=== PATIENT | male | born 1985 | race Caucasian/White ===

== ENCOUNTER 2024-11-20 15:33 | Emergency (ER) | payer OTHER, SELFPAY ==
--- NOTE | ~2024-11-20 | XR_ITS ---
CHEST RADIOGRAPH, PA AND LATERAL CLINICAL HISTORY: chest pain RT SIDED H/A'S PALPITATIONS TODAY . COMPARISON: None available TECHNIQUE: PA and lateral views of the chest. FINDINGS The cardiomediastinal silhouette is unremarkable. The lungs are clear. Visualized osseous structures and soft tissues are unremarkable. IMPRESSION: No focal infiltrate or effusion. Reviewed, dictated and finalized at location A.
--- NOTE | ~2024-11-20 | CT_ITS ---
CT brain wo con Ordering provider: Nasra Nielsen PA-C History: 39 years Male with . headache, elevated BP . Comparison: None. Technique: CT of the head without contrast. Radiation reduction technique utilized. The dose-length p roduct was 681 mGy-cm. FINDINGS: BRAIN PARENCHYMA AND CSF SPACES: No midline shift, mass effect or hemorrhage. The brain parenchyma a nd CSF spaces are otherwise normal. VISUALIZED PARANASAL SINUSES: Maxillary sinus disease bilateral ethmoid sinus disease. Well aerated. MASTOIDS: Well aerated. BONES: The bones appear intact. SOFT TISSUES: Visualized nasopharynx is normal. Superficial soft tissues are normal. IMPRESSION: No acute intracranial findings. Reviewed, dictated and finalized at location A.
--- NOTE | 2024-11-20 15:35 | ECG_ITS ---
Test Date: 2024-11-20 15:39:56 Measurements Intervals [place] Rate: 91 P: 43 MO: 144 QRS: 36 QRSD: 75 T: 18 QT: 346 QTc: 427 Interpretive Statements SINUS RHYTHM POSSIBLE LEFT ATRIAL ENLARGEMENT ANTEROSEPTAL INFARCT, AGE INDETERMINATE ABNORMAL ECG No previous ECG available for comparison Electronically Signed On 11-20-2024 15:56:35 CDT by George Rogel D.O.
[2024-11-20 15:43] VITALS: BP 217/127; PULSE 98; RESP 16; TEMP 36.4; O2SAT 99
[2024-11-20 15:51] LABS: Hematocrit 44.2 % (42.0-52.0); Hemoglobin 14.1 g/dL (14.0-18.0); Mean Corpuscular HGB Conc 31.9 g/dl (32-36); Mean Corpuscular Volume 84.7 fl (80-100); Mean Platelet Volume 12.6 fl (7.4-10.4); Platelet Count Result 235 k/mm3 (150-375); Red Blood Count 5.22 M/mm3 (4.6-6.20); Red Cell Distribution Width 14.3 % (11.5-14.5); White Blood Count 11.3 K/mm3 (4.5-10.0)
[2024-11-20 16:03] LABS: Alanine Aminotransferase 22 U/L (6-50); Albumin Level 4.7 g/dL (3.5-5.1); Alkaline Phosphatase 63 U/L (38-126); Anion Gap 9 mmol/L (4-12); Aspartate Amino Transferase 23 U/L (17-59); Bilirubin,Total 0.5 mg/dL (0.2-1.3); Blood Urea Nitrogen 17 mg/dL (9-20); Calcium 9.1 mg/dL (8.4-10.2); Carbon Dioxide 26 mmol/L (22-30); Chloride 105 mmol/L (98-107); Estimated CRCL calculation 134 ml/min; Estimated Glomerular Filt Rate > 60; Glucose 155 mg/dL (65-110); Lipase 92 U/L (23-300); Potassium 3.8 mmol/L (3.4-5.0); Sodium 140 mmol/L (137-145)
[2024-11-20 16:05] LABS: Prothrombin Time 13.7 Seconds (11.1-14.7)
[2024-11-20 16:06] LABS: Partial Thromboplastin Time 30.5 Seconds (22.3-36.8)
[2024-11-20 16:16] LABS: Troponin I 0.013 ng/mL (0.000-0.034)
[2024-11-20 16:24] LABS: Band Neutrophils Percent 2 % (0-6); Basophils Absolute Manual 0.11 K/mm3 (0.0-0.1); Basophils Percent Manual 1 % (0-1); Eosinophils Absolute Manual 0.11 K/mm3 (0.02-0.50); Eosinophils Percent Manual 1 % (0-4); Lymphocytes Absolute Manual 1.58 K/mm3 (1.1-4.5); Lymphocytes Percent Manual 14 % (18-44); Monocytes Percent Manual 8 % (3-9); Neutrophils Absolute Manual 8.58 K/mm3 (1.3-6.7); Neutrophils Percent Manual 74 % (46-73); Total Cells Counted 100
[2024-11-20 16:25] LABS: Anisocytosis 1+; Ovalocytes 1+; Platelet Estimate Adequate (Adequate); Schistocytes None Seen
[2024-11-20 16:27] VITALS: BP 213/130; PULSE 89; RESP 16; TEMP 36.8; O2SAT 97
[2024-11-20] MEDS: ASPIRIN 81 MG CHEWABLE TABLET 324 MG PO (16:48)
--- OUTSIDE RECORDS SUMMARY | 2024-11-20 16:50 | XMS_ITS | Clinical Summary ---
Author Organization [facility] Address [address] [place] [address] Care Team Providers Care Solar Energy Consultant And Designer Name Role Phone Wicho Fang MD Primary Care Provider [phone] Source Comments [facility],non-owned Affiliates and Associated Physician Practices is amultiple site organization consisting of ambulatory clinics and hospital sitesin [place], [place], [place] and [place]. This disclosure is being madepursuant to the Care Everywhere program and may not contain all information available regarding this patient. Last updated 18.[facility] Allergies No known active allergies Medications * Be aware that medications may not be up to date on this document. Alwaysverify current medications with the patient. Medication Sig Dispensed Refills Start Date End Date Status ALPRAZolam (Xanax) 1 MG tablet Take 1 (one) tablet by mouth every 4 hours as needed 06/10/2022 Active amLODIPine (Norvasc) 10 MG tablet Take 1 (one) tablet by mouth once daily 07/21/2022 Active irbesartan (Avapro) 300 MG tablet Take 1 (one) tablet by mouth once daily 07/21/2022 Active traZODone (Desyrel) 50 MG tablet Take 1 (one) tablet by mouth at bedtime 07/21/2022 Active aspirin EC (Ecotrin) 81 MG tablet Take 1 (one) tablet by mouth 2 times daily Active albuterol HFA (Proventil; Ventolin; Proair) 108 (90 Base) MCG/ACT inhaler Inhale 1 (one) puff to 2 (two) puffs by mouth once daily as needed 08/15/2022 Active diphenhydrAMINE HCl (BENADRYL ALLERGY PO) Take 50 mg by mouth as needed Active amLODIPine (Norvasc) 10 MG tablet Take 1 (one) tablet by mouth every 24 hours 10/26/2022 Active tretinoin (Retin-A) 0.025 % cream Apply small amount to upper lip daily. 30 days supply. 45 g 02/17/2023 Active emtricitabine-tenofov ir DF (Truvada) 200-300 MG tablet Take 1 (one) tablet by mouth once daily 90 tablet 4 07/25/2023 Active Active Problems Problem Noted Date Diagnosed Date Generalized anxiety disorder 03/20/2015 Hypercholesterolemia 03/20/2015 01/24/2023 Abnormal glucose level 03/20/2015 3 Immunizations Name Administration Dates Next Due HEP A VACCINE, ADULT 10/25/2022 Human Papilloma Virus Ninevalent Vaccine 023 INFLUENZA VACCINE 06/03/2022 TDAP (7yrs+) 06/14/2020 Family History Medical History Relation Name Comments Hypertension Father Renal Disease Father Other - Cardiac Maternal Grandmother Cancer Mother Thyroid Disease Mother Cancer Paternal Grandfather Glaucoma Paternal Grandmother Hypertension Paternal Grandmother Relation Name Status Comments Brother Alive Father Maternal Grandfather Maternal Grandmother Mother Alive Paternal Grandfather Paternal Grandmother Alive Sister Alive Social History Tobacco Use Types Packs/Day Years Used Date Smoking Tobacco: Never Assessed PHQ-2 Answer Date Recorded PHQ2 TOTAL SCORE 2 01/24/2023 Sex and Gender Information Value Date Recorded Sex Assigned at Male 01/24/2023 12:17 PM CDT Gender Identity Male 01/24/2023 12:17 PM CDT Sexual Orientation Bisexual 01/24/2023 12 :17 PM CDT Last Filed Vital Signs Vital Sign Reading Time Taken Comments Blood Pressure 142/88 01/24/2023 1:32 PM CDT Pulse 67 01/24/2023 1:09 PM CDT Temperature 36 C (96.8 F) 01/24/2023 1:09 PM CDT Respiratory Rate - - Oxygen Saturation 97% 01/24/2023 1:09 PM CDT Inhaled Oxygen Concentration - - Weight 133.1 kg (293 lb 6.4 oz) 01/24/2023 1:09 PM CDT Height 188 cm (6' 2 ) 01/24/2023 1:09 PM CDT Body Mass Index 37.67 01/24/2023 1:09 PM CDT Plan of Treatment Health Maintenance Due Date Last Done Comments HEPATITIS B VACCINE (1 of 3 - 19+ 3-dose series) 2006 HPV VACCINE (2 - 3-dose SCDM series) 02/21/2023 01/24/2023 HEPATITIS A VACCINE (2 of 2 - Risk 2-dose series) 04/27/2023 10/25/2022 COVID-19 VACCINE ( season) 2024 05/27/2022, 10/20/2021, 02/17/2021, Additional history exists INFLUENZA VACCINE (#1) 2024 06/03/2022 DEPRESSION SCREENING 08/14/2024 01/24/2023, 07/26/20 22 DTAP/TDAP/TD VACCINES (2 - Td or Tdap) 06/14/2030 06/14/2020 ZOSTER VACCINE (1 of 2) 2037 HEPATITIS C SCREENING Completed 10/25/2022, 022 HIV SCREENING Completed 01/24/2023, 01/12, 01/24/2023, Additional history exists HIB VACCINE Aged Out No longer eligi ble based on patient's age to complete this topic MENINGOCOCCAL (Group B) VACCINE SHARED DECISION-MAKING Aged Out No longer eligible based on patient's age to complete this topic MENINGOCOCCAL GROUPS A/C/Y/W VACCINE Aged Out No longer eligible based on patient's age to complete this topic PNEUMOCOCCAL VACCINE Aged Out No long er eligible based on patient's age to complete this topic Procedures Procedure Name Priority Date/Time Associated Diagnosis Comments HIV-1 HIV-2 - POCT (AMB) STL Routine 01/24/2023 1:10 PM CDT Exposure to HIV On pre-exposure prophylaxis for HIV HEPATITIS C AB W/RFLX TO HCV RNA QN PCR Routine 10/25/2022 1:48 PM CDT Exposure to HIV Routine screening for STI (sexually transmitted infection) from Last 3 Months or Most Recently Relevant to Health Maintenance Results * HIV-1 HIV-2 - POCT (AMB) STL (01/24/2023 1:10 PM CDT) HIV-1/HIV-2 POCT Negative Comment:Determin HIV combo A B Ag Blood BLOOD SPECIMEN / Unknown 01/24/2023 1:10 PM CDT Whitley Maguire David BASIN FINISH OPERATOR TIG WELDER-FERTILIZER APPLICATOR LAB - POINT OF CARE ORDERABLES * Hep C Antibody with reflex ([facility]) (10/25/2022 1:48 PM CDT) Hepatitis C Antibody NON-REACTI VE NON-REACT [facility] Signal to Cut-Off 0.12 <1.00 [facility] Comment: HCV antibody was non-reactive. There is no laboratory evidence of HCV infection. In most cases, no further action is required. However, if recent HCV exposure is suspected, a test for HCV RNA (test code 20354) is suggested. For additional information please refer to http://education.Meme/faq/THZ24w1 (This link is being provided for informational/ educational purposes only.) Test Performed at: [facility] [address] [place] [address] KATHY WILCOX MD Blood BLOOD SPECIMEN / Unknown 10/25/2022 1:48 PM CDT 10/26/2022 2:15 PM CDT Whitley Maguire David BASIN FINISH OPERATOR TIG WELDER-FERTILIZER APPLICATOR LAB - CHEMISTRY ORDERABLES [facility] [address] [place] [address] from Last 3 Months or Most Recently Relevant to Health Maintenance Care Teams Solar Energy Consultant And Designer Relationship Specialty Start Date End Date Wicho Fang MD [address] [place] [phone] PCP - General 06/29/22
--- OUTSIDE RECORDS SUMMARY | 2024-11-20 16:50 | XMS_ITS | Encounter Summary ---
Author Organization [facility] Address [facility] [place] [address] Care Team Providers Care Scraper Hand Name Role Phone Wicho Fang MD Primary Care Provider [phone] Reason for Visit * Reason Comments Refill Request Encounter Details Date Type Department Care Team (Late st Contact Info) Description 01/18/2023 Refill [facility] - Infectious Disease [address] [place] [address], [facility] [place] [phone] Whitley Hernandez, DIP PAINTER-WRAPPING CLERK [address] [place] [phone] Refill Request Social History Tobacco Use Types Packs/Day Years Used Date Smoking Tobacco: Never Assessed PHQ-2 Answer Date Recorded PHQ2 TOTAL SCORE 0 07/26/2022 Sex and Gender Information Value Date Recorded Sex Assigned at Male 01/24/2023 12:17 PM CDT Gender Identity Male 01/24/2023 12:17 PM CDT Sexual Orientation Bisexual 01/24/2023 12 :17 PM CDT documented as of this encounter Plan of Treatment Not on file documented as of this encounter Visit Diagnoses Diagnosis Exposure to HIV Contact with or exposure to other viral diseases documented in this encounter Care Teams Scraper Hand Relationship Specialty Start Date End Date Wicho Fang MD [address] [place] [phone] PCP - General 06/29/22 documented as of this encounter
--- OUTSIDE RECORDS SUMMARY | 2024-11-20 16:50 | XMS_ITS | Continuity of Care Document ---
Author Organization [facility] Address [address] [place] [address] Phone Care Team Providers Care Button Grader Name Role Phone Wicho Fang MD Unavailable Unavailable Allergies, Adverse Reactions, Alerts Substance Reaction Status Criticality No Known Allergies Active No Inform ation Medications Medication Instructions Dosage Effective Dates (start - stop) Status Comments Xanax 1 mg tablet take 1 tablet by oral route every 6 hours as needed 1 MG - Active PRN for anxiety, avoid driving or operate machines, max 3/24 hours Norvasc 10 mg tablet take 1 tablet by oral route every day 10 MG - Active irbesartan 300 mg tablet take 1 tablet by oral route every day 300 MG - Active Lexapro 10 mg tablet take 1 tablet by oral route every day 10 MG - Active trazodone 50 mg tablet take 1 tablet by oral route every bedtime after meals 50 MG - Active avoid drivin g or operate machines Lamictal 100 mg tablet take 1 tablet by oral route every day 100 MG - Active Procedures Procedure Date OFFICE/OUTPATIENT VISIT, EST OFFICE/OUTPATIENT VISIT, EST OFFICE/OUTPATIENT VISIT, EST OFFICE/OUTPATIENT VISIT, EST OFFICE/OUTPATIENT VISIT, EST PREV VISIT, EST, AGE 18-39 OFFICE/OUTPATIENT VISIT, EST OFFICE/OUTPATIENT VISIT, EST OFFICE/OUTPATIENT VISIT, EST OFFICE/OUTPATIENT VISIT, EST PREV VISIT, EST, AGE 18-39 OFFICE/OUTPATIENT VISIT, EST OFFICE/OUTPATIENT VISIT, EST OFFICE/OUTPATIENT VISIT, EST OFFICE/OUTPATIENT VISIT, EST OFFICE/OUTPATIENT VISIT, EST PREV VISIT, EST, AGE 18-39 OFFICE/OUTPATIENT VISIT, EST OFFICE/OUTPATIENT VISIT, EST OFFICE/OUTPATIENT VISIT, EST PREV VISIT, EST, AGE 18-39 OFFICE/OUTPATIENT VISIT, EST OFFICE/OUTPATIENT VISIT, EST OFFICE/OUTPATIENT VISIT, EST OFFICE/OUTPATIENT VISIT, EST PREV VISIT, EST, AGE 18-39 OFFICE/OUTPATIENT VISIT, EST OFFICE/OUTPATIENT VISIT, EST OFFICE/OUTPATIENT VISIT, EST PREV VISIT, EST, AGE 18-39 PREV VISIT, EST, AGE 18-39 OFFICE/OUTPATIENT VISIT, EST OFFICE/OUTPATIENT VISIT, EST OFFICE/OUTPATIENT VISIT, EST OFFICE/OUTPATIENT VISIT, EST OFFICE/OUTPATIENT VISIT, EST OFFICE/OUTPATIENT VISIT, EST PREV VISIT, NEW, AGE 18-39 Advance Directives Directive Yes / No Effective Date File Name No Information Encounters Encounter Description Practice Location Reason(s) For Visit Diagnoses Date Provider Providers Copied on Encounter [facility], [place], [address] [place], [place], [address], tel:[phone] [facility] Medicine No Information 5 Leoncio Sands. [address], [place], [place], [address] , [place]. tel:[phone] OFFICE/OUTPA TIENT VISIT, EST [facility], [place], [address] [place], [place], [address], tel:[phone] [facility] [place] HTN (chief complaint)a nxiety1 (chief complaint)s ick1 (chief complaint)i nsomnia1 (chief complaint) Essential (primary) hypertensionGenera lized anxiety disorderObstructiv e sleep apnea hypopneaViral infection 5 Leoncio Somers [address], [place], [place], [address] , [place]. tel:[phone] OFFICE/OUTPA TIENT VISIT, [facility], [address], [place], [place], [address], [place] tel:[phone] [facility] [place] anxiety1 (chief complaint)H TN (chief complaint) Essential (primary) hypertensionGenera lized anxiety disorder 4 Leoncio Sands. [address], [place], [place], [address] , [place]. tel:[phone] OFFICE/OUTPA TIENT VISIT, [facility], [address], [place], [place], [address], [place] tel:[phone] [facility] [place] GI (chief complaint) Gastroenteritis 4 Leoncio Sands. [address], [place], [place], [address] , [place]. tel:[phone] OFFICE/OUTPA TIENT VISIT, [facility], [address], [place], [place], [address], [place] tel:[phone] [facility] [place] diarrhea1 (chief complaint)H TN (chief complaint)a nxiety1 (chief complaint) Irritable bowel syndrome with diarrheaGeneralize d anxiety disorderEssential (primary) hypertension 4 Leoncio Sands. [address], [place], [place], [address] , [place]. tel:[phone] OFFICE/OUTPA TIENT VISIT, [facility], [address], [place], [place], [address], [place] tel:[phone] [facility] [place] HLP (chief complaint)a nxiety1 (chief complaint)i nsomnia1 (chief complaint)w eight gain1 (chief complaint) Generalized anxiety disorderMixed hyperlipidemiaPrim ady insomniaAbnormal weight gain 4 Leoncio Somers [address], [place], [place], [address] , [place]. tel:[phone] Referring Provider: Aria [address], [place], [place], [address]. tel:[phone] PREV VISIT, EST, AGE 18-39 [facility], [place], [address], [place], [place], [address], [place] tel:[phone] [facility] [place] physical (chief complaint) Encounter for general adult medical exam w abnormal findingsGeneralize d anxiety disorderEssential (primary) hypertensionObstru ctive sleep apnea hypopnea 3 Leoncio Somers [address], [place], [place], [address] , [place]. tel:[phone] Referring Provider: Aria [address], [place], [place], [address]. tel:[phone] OFFICE/OUTPA TIENT VISIT, EST [facility], [place], [address], [place], [place], [address], [place] tel:[phone] [facility] [place] anxiety1 (chief complaint)d iarrhea1 (chief complaint) Generalized anxiety disorderDiarrhea 3 Leoncio Somers [address], [place], [place], [address] , [place]. tel:[phone] Referring Provider: Aria [address], [place], [place], [address]. tel:[phone] OFFICE/OUTPA TIENT VISIT, EST [facility], [place], [address], [place], [place], [address], [place] tel:[phone] [facility] [place] HTN (chief complaint)a nxiety1 (chief complaint) Generalized anxiety disorderEmotional labilityEssential (primary) hypertension 3 Leoncio Somers [address], [place], [place], [address] , [place]. tel:[phone] Referring Provider: Wicho Fagn, [address], [place], [place], [address]. tel:[phone] OFFICE/OUTPA TIENT VISIT, EST [facility], [place], [address], [place], [place], [address], [place] tel:[phone] [facility] Medicine HTN (chief complaint)a nxiety1 (chief complaint) Essential (primary) hypertensionGenera lized anxiety disorder 3 Leoncio Sands. [address], [place], [place], [address] , [place]. tel:[phone] Referring Provider: Wicho Fang [address] [facility] [address], [place], [place], [address]. tel:[phone] PREV VISIT, EST, AGE 18-39 [facility], [place], [address], [place], [address], [place] tel:[phone] [facility] [place] physical (chief complaint) Encounter for general adult medical exam w abnormal findingsEssential (primary) hypertensionPrimar y insomniaPrimary central sleep apneaGeneralized anxiety disorderAbnormal weight gain 3 Leoncio Sands. [address], [place], [place], [address] , [place]. tel:[phone] Referring Provider: Aria [address], [place], [place], [address]. tel:[phone] OFFICE/OUTPA TIENT VISIT, EST [facility], [place], [address], [place], [place], [address], [place] tel:[phone] [facility] [place] anxiet1 (chief complaint)s ick (chief complaint)H TN (chief complaint) Generalized anxiety disorderEssential (primary) hypertensionAcute bronchitisHigh risk bisexual behavior 3 Leoncio Sands. [address], [place], [place], [address] , [place]. tel:[phone] Referring Provider: Wicho Fang [address], [place], [place], [address]. tel:[phone] OFFICE/OUTPA TIENT VISIT, [facility], [address], [place], [place], [address], [place] tel:[phone] [facility] [place] HTN (chief complaint)a nxiety1 (chief complaint)S TD (chief complaint)s leep apnea1 (chief complaint) Essential (primary) hypertensionPrimar y insomniaGeneralize d anxiety disorderPrimary central sleep apneaEncounter for STD screening 2 Leoncio Sands. [address], [place], [place], [address] , [place]. tel:[phone] Referring Provider: Aria Adams [facility] [address], [place], [place], [address]. tel:[phone] OFFICE/OUTPA TIENT VISIT, [facility], [address], [place], [place], [address], [place] tel:[phone] [facility] [place] HTN (chief complaint)i nsomnia1 (chief complaint)a nxiety1 (chief complaint) Generalized anxiety disorderEssential (primary) hypertensionPrimar y insomnia 2 Leoncio Sands. [address], [place], [place], [address] , [place]. tel:[phone] Referring Provider: Aria Adams [facility], [place], [place], [address]. tel:[phone] OFFICE/OUTPA TIENT VISIT, [facility], [address], [place], [place], [address], [place] tel:[phone] [facility] [place] HTN (chief complaint)H LP (chief complaint)b 12 (chief complaint)i nsomnia1 (chief complaint) Essential (primary) hypertensionGenera lized anxiety disorderInsomniaHy perlipidemiaHyperg lycemiaHigh risk bisexual behavior 2 Leoncio Somers [address], [place], [place], [address] , [place]. tel:[phone] Referring Provider: [address], [place], [place], [address]. tel:[phone] PREV VISIT, EST, AGE 18-39 [facility] [place], [address], [place], [place], [address], [place] tel:[phone] [facility] Medicine physical (chief complaint) Encounter for general adult medical exam w abnormal findingsEssential (primary) hypertensionSleep apneaGeneralized anxiety disorderInsomniaEn counter for STD screening 2 Leoncio Sands. [address], [place], [place], [address] , [place]. tel:[phone] Referring Provider: Wicho Fang, [address], [place], [place], [address]. tel:[phone] OFFICE/OUTPA TIENT VISIT, EST [facility], [place], [address], [place], [place], [address], [place] tel:[phone] [facility] [place] HTN (chief complaint)a nxiety1 (chief complaint)i nsomnia1 (chief complaint) Sleep apneaEssential (primary) hypertensionInsomn iaGeneralized anxiety disorderAbnormal weight gain 1 Leoncio Sands. [address], [place], [place], [address] , [place]. tel:[phone] Referring Provider: Aria [address], [place], [place], [address]. tel:[phone] OFFICE/OUTPA TIENT VISIT, EST [facility], [place], [address], [place], [place], [address], [place] tel:[phone] [facility] [place] insomnia1 (chief complaint)a nxiety1 (chief complaint)H TN (chief complaint) Generalized anxiety disorderEssential (primary) hypertensionSleep apneaInsomnia 0 Leoncio Sands. [address], [place], [place], [address] , [place]. tel:[phone] Referring Provider: Aria [address], [place], [place], [address]. tel:[phone] PREV VISIT, EST, AGE 18-39 [facility], [place], [address], [place], [place], [address], [place] tel:[phone] [facility], [place] Physical (chief complaint) Encntr for general adult medical exam w/o abnormal findings Oct-0 3-202 0 Leoncio Sands. [address], [place], [place], [address] , [place]. tel:[phone] Referring Provider: Wicho Fang, [address], [place], [place], [address]. tel:[phone] OFFICE/OUTPA TIENT VISIT, [facility], [address], [place], [place], [address], [place] tel:[phone] [facility] [place] GERD1 (chief complaint)a nxiety1 (chief complaint)H TN (chief complaint)i nsomnia1 (chief complaint)s leep apnea1 (chief complaint)w eight loss1 (chief complaint) Sleep apneaInsomniaGener alized anxiety disorderGERD w/o esophagitisAbnorma l weight lossEssential (primary) hypertension 9 Leoncio Sands. [address], [place], [place], [address] , [place]. tel:[phone] OFFICE/OUTPA TIENT VISIT, EST [facility], [place], [address], [place], [place], [address], [place] tel:[phone] [facility] [place] weight loss1 (chief complaint)G ERD1 (chief complaint)a nxiety1 (chief complaint)H TN (chief complaint) Abnormal weight lossEssential (primary) hypertensionGenera lized anxiety disorderGERD w/o esophagitis 9 Leoncio Sands. [address], [place], [place], [address] , [place]. tel:[phone] OFFICE/OUTPA TIENT VISIT, [facility], [address], [place], [place], [address], [place] tel:[phone] [facility] [place] HTN (chief complaint)a nxiety1 (chief complaint)g lucose1 (chief complaint)s td1 (chief complaint)H LP (chief complaint) Body mass index (BMI) 38.0-38.9, adultEssential (primary) hypertensionGenera lized anxiety disorderHyperglyce miaHigh risk bisexual behaviorHyperlipid emia 9 Leoncio Sands. [address], [place], [place], [address] , [place]. [phone] OFFICE/OUTPA TIENT VISIT, [facility], [address], [place], [place], [address], [place] tel:[phone] [facility] [place] HTN (chief complaint)a nxiety1 (chief complaint)s leep apnea1 (chief complaint) Body mass index (BMI) 39.0-39.9, adultGeneralized anxiety disorderEssential (primary) hypertensionSleep apnea 9 Leoncio Sands. [address], [place], [place], [address] , [place]. [phone] PREV VISIT, EST, AGE 18-39 [facility], [place], [address], [place], [place], [address], [place] tel:[phone] [facility] [place] Physical (chief complaint) Encntr for general adult medical exam w/o abnormal findings 9 Leoncio Sands. [address], [place], [place], [address] , [place]. [phone] OFFICE/OUTPA TIENT VISIT, [facility], [address], [place], [place], [address], [place] tel:[phone] [facility] [place] HTN (chief complaint)a nxiety1 (chief complaint)s leep apnea1 (chief complaint)t level1 (chief complaint) Essential (primary) hypertensionSleep apneaGeneralized anxiety disorderMale erectile dysfunction, unspecified 0- 8 Leoncio Sands. [address], [place], [place], [address] , [place]. tel: [phone] Referring Provider: Wicho Fang [address], [place], [place], [address]. tel:[phone] OFFICE/OUTPA TIENT VISIT, EST [facility], [place], [address], [place], [place], [address], [place] tel:[phone] [facility] HTN (chief complaint)s leep 1 (chief complaint)c p (chief complaint)f atigue1 (chief complaint) Body mass index (BMI) 38.0-38.9, adultSleep apneaEssential (primary) hypertensionChest painGeneralized anxiety disorder 8 Leoncio Sands. [address], [place], [place], [address] , [place]. [phone] Referring Provider: Wicho Fang [address], [place], [place], [address]. tel:[phone] OFFICE/OUTPA TIENT VISIT, EST [facility], [place], [address], [place], [place], [address], [place] tel:[phone] [facility] HLP (chief complaint)g lucose1 (chief complaint)H TN (chief complaint)H TN (chief complaint) Essential (primary) hypertensionHyperg lycemiaHyperlipide miaChest painBody mass index (BMI) 38.0-38.9, adult 8 Leoncio Sands. [address], [place], [place], [address] , [place]. [phone] Referring Provider: Aria [address], [place], [place], [address]. tel:[phone] PREV VISIT, EST, AGE 18-39 [facility], [place], [address], [place], [place], [address], [place] tel:[phone] [facility] [place] PHysical (chief complaint) Encntr for general adult medical exam w/o abnormal findings 8 Leoncio Sands. [address], [place], [place], [address] , [place]. [phone] Referring Provider: Wicho Fang [address], [place], [place], [address]. tel:[phone] PREV VISIT, EST, AGE 18-39 [facility], [place], [address], [place], [place], [address], [place] tel:[phone] [facility] [place] cat bite (chief complaint)p hysical (chief complaint) Encntr for general adult medical exam w/o abnormal findings 6 Leoncio Sands. [address], [place], [place], [address] , [place]. tel:[phone] Referring Provider: Aria A[address], [place], [place], [address]. tel:[phone] OFFICE/OUTPA TIENT VISIT, [facility], [address], [place], [place], [address], [place] tel:[phone] [facility] [place] anxiety1 (chief complaint)H TN (chief complaint)H LP (chief complaint)g lucose (chief complaint) Essential (primary) hypertensionMixed hyperlipidemiaHype rglycemiaGeneraliz ed anxiety disorder 6 Leoncio Sands. [address], [place], [place], [address] , [place]. tel:[phone] Referring Provider: A[address], [place], [place], [address]. tel:[phone] OFFICE/OUTPA TIENT VISIT, [facility], [address], [place], [place], [address], [place] tel:[phone] [facility] [place] anxiety1 (chief complaint)a llergy (chief complaint)o besity (chief complaint) Generalized anxiety disorderAllergic rhinitisBody mass index (BMI) 34.0-34.9, adult Oct-0 6 Leoncio Sands. [address], [place], [place], [address] , [place]. [phone] Referring Provider: Aria Adams [address], [place], [place], [address]. tel:[phone] OFFICE/OUTPA TIENT VISIT, [facility], [address], [place], [place], [address], [place] tel:[phone] [facility] [place] Anxiety1 (chief complaint) Generalized anxiety disorderDepression NOS 0 6 Leoncio Sands. [address], [place], [place], [address] , [place]. tel:[phone] Referring Provider: Aria Adams [address] [facility] [address], [place], [place], [address]. tel:[phone] OFFICE/OUTPA TIENT VISIT, [facility], [address], [place], [place], [address], [place] tel:[phone] [facility] [place] depression (chief complaint)d epression1 (chief complaint)l ip lesion1 (chief complaint)H LP1 (chief complaint) Other viral wartsGeneralized anxiety disorderDepression Mixed hyperlipidemia 5 Leoncio Sands. [address], [place], [place], [address] , [place]. tel:[phone] Referring Provider: [address], [place], [place], [address]. tel:[phone] OFFICE/OUTPA TIENT VISIT, [facility], [address], [place], [place], [address], [place] tel:[phone] [facility] [place] lip lesion (chief complaint)m ood disorder (chief complaint) Dietary surveillance and counselingChronic depressionPersonal ity disorder characterized by alternating episodes of mood swings from mild to moderate depression to episodes full of hyperactivity, excitement, elevated mood and high energyAbnormal weight gainLip lesion Apr-2 2201 5 Leoncio Sands. [address], [place], [place], [address] , [place]. tel:[phone] Referring Provider: [address], [place], [place], [address]. tel:[phone] OFFICE/OUTPA TIENT VISIT, [facility], [address], [place], [place], [address], [place] tel:[phone] [facility] [place] glucose (chief complaint)H LP (chief complaint)v itamin D (chief complaint)A nxeity (chief complaint) HyperglycemiaOther and unspecified hyperlipidemiaVita min deficiencyGenerali zed Anxiety Disorder 5 Leoncio Sands. [address], [place], [place], [address] , [place]. tel:[phone] Referring Provider: Wicho Fang, [address], [place], [place], [address]. tel:[phone] PREV VISIT, NEW, AGE 18-39 [facility], [place], [address], [place], [place], [address], [place] tel:[phone] [facility] [place] Physical (chief complaint) Dietary surveillance and counselingRoutine medical exam 5 Leoncio Sands. [address], [place], [place], [address] , [place]. tel:[phone] Family History Family Member Type Diagnosis Age At Onset Paternal grandfather Problem colon CA in his 50s Father Problem (finding) Renal disease Mother Problem (finding) Thyroid disorder Father Problem (finding) Hypertension Brother Problem (finding) Alive and well Payers Payer name Insurance type Covered constitution party ID Authoriza tion(s) No Information Social History Type Description Quantity Date Captured Comments Sex Male Smoking Status No Information Chief Complaint And Reason For Visit No Information Plan Of Treatment Date Type Action Status Goal Tobacco cessation counseling completed Goal Special diet education compl eted Goal Tobacco cessation counseling completed Goal Special diet education compl eted Goal Special diet education compl eted Goal Tobacco cessation counseling completed Goal Special diet education compl eted Goal Special diet education compl eted Goal Special diet education compl eted Goal Special diet education compl eted Referral Ordered: Infectious Disease (related to Encounter for STD screening) ordered Referral Ordered: Referrals: Infectious Disease. Evaluate and treat ordered Referral Ordered: Podiatry (related to Encntr for general adult medical exam w/o abnormal findings) ordered Referral Ordered: Referrals: Podiatry. Evaluate and treat ordered Referral Ordered: SLEEP STUDY, ATTENDED ordered Referral Ordered: George Rogel (related to Encntr for general adult medical exam w/o abnormal findings) ordered Referral Referred To: George Rogel [address] [place], [place] [address] Ordered: Referrals: George Rogel. Evaluate and treat ordered Referral Ordered: Plastic Surgery (related to Other viral warts) ordered Referral Ordered: Referrals: Plastic Surgery. Evaluate and treat ordered Referral Ordered: Lisy Bey (related to Lip lesion) ordered Referral Referred To: Lisy Bey [address] [place], [phone] Ordered: Referrals: Lisy Bey. Evaluate and treat ordered Nutrition Recommendation Nutrition therap y completed History Of Present Illness Encounter Date Complaint History Of Prese nt Illness HTN Pt has HTN pt ta kes irbesartan and norvasc and his bp is high Pt denies any chest pain or headache Pt has been taking OTC cold medicine sick1 Pt c/o acute ons et of sore throat, sinus congestion with purulent drainage, productive cough with green phlegm with mild sob for one week Pt denies any fever. Pt denies any sick contact. Pt tested negative for COVID two days ago insomnia1 Pt has chronic i nsomnia with sleep apnea Pt takes trazodone and he uses cpap nightly and doing ok anxiety1 Pt has chronic a nxiety and depression Pt takes lexapro and lamictal and xanax PRn and doing ok Pt denies any suicidal or homicidal thought Pt denies any crying spells anxiety1 Pt has chronic a nxiety and depression Pt takes lexapro and lamictal and xanax PRn and doing ok Pt denies any suicidal or homicidal thought Pt denies any crying spells HTN Pt has HTN Pt ta kes irbesartan and norvasc and his bp is ok GI Pt c/o acute ons et of diarrhea, nausea, vomiting, since 2 days ago. Pt c/o abd cramp. Pt had some sushi at [employer] prior to onset. Pt is able to tolerate liquid but he has low appetite. he states that everything goes through him very quickly with diarrhea after eating. Pt denies any fever, chill. HTN Pt has HTN Pt ta kes irbesartan and norvasc his bp is stable Pt needs it refilled. anxiety1 Pt has chronic a nxiety and depression with mood swings Pt denies any suicidal or homicidal thought, Pt denies any crying spells Pt doing well with lexapro, xanax PRN and also lamictal. diarrhea1 Pt has chronic d iarrhea for several years Pt has intermittent abdominal cramp with diarrhea Pt denies any blood in stool. Pt denies any nausea, vomiting, or weight loss. Pt states that his paternal grandfather of colon CA in his 50s. HLP Pt has HLP Pt is working on diet anxiety1 Pt has chronic a nxiety and depression Pt takes lexapro and lamictal and xanax PRn Pt john any suicidal or homicidal thought. pt denies any crying spells insomnia1 Pt has insomnia Pt takes trazodone and doing ok pt has sleep apnea Pt uses cpap nightly and doing ok weight gain1 Pt has been gain ing weight Pt has not been diet and exercising physical Pt needs annual physical Pt has HTn pt takes norvasc and irbesartan and his bp is stable Pt has insomnia Pt takes trazodone and doing ok. pt has sleep apnea and he uses cpap nightly and doing ok Pt feels more energy with cpap. Pt has chronic anxiety and depression with bipolar and manic episodes pt doing very well with lexapro, lamictal and xanax PRn Pt denies any suicidal or homicidal thought Pt denies any crying spells. Pt has stable mood he denies any manic episodes. He also denies hearing voices or seeing anything not there. Pt overall feels well. diarrhea1 Pt has been havi ng non-bloody diarrhea since taking lexapro and lamictal. Pt denies any blood in stool. Pt denies any abdominal pain, nausea, vomiting, constipation or any other GI issue. anxiety1 Pt has chronic a nxiety and depression with some mood swings and some manic episodes .Pt has been taking lexapro and lamictal and xanax PRn and doing ok. Pt denies any suicidal or homicidal thought Pt denies any crying spells .Pt states that his mood is much better with medication and he denies any manic episodes. HTN Pt has HTN Pt ta kes norvasc and irbesartan and his bp is ok Pt denies any chest pain or headache anxiety1 Pt has chronic a nxiety. Pt also feels depressed with severe mood swings Pt also notices manic episode with insomnia and very hyperactive. pt denies any suicidal or homicidal thought Pt denies any crying spells. HTN Pt has HTN .Pt t akes norvasc and irbesartan and his bp is borderline high Pt denies any chest pain or headache anxiety1 Pt has chronic a nxiety. Pt denies any depression or any suicidal or homicidal thought. Pt denies any crying spells Pt has a lot of anxiety at work physical Pt needs annual physical pt has HTn .Pt takes norvasc and irbesartan and he states that his bp was around 150/90 at Infectious disease doctor recently Pt denies any chest pain or headache .Pt has anxiety and insomnia Pt takes xanax and trazodone and doing ok. Pt denies any depression or any suicidal or homicidal thought Pt denies any crying spells Pt is on PREP now by ID. Pt denies any STD symptoms Pt has sleep apnea Pt uses cpap nightly .Pt denies any other complaints anxiet1 Pt has chronic a nxiety Pt denies any depression or any suicidal or homicidal thought Pt denies any crying spells. sick Pt c/o mild hoar seness, mild productive cough with clear phlegm. sinus congestion, mild wheezing and sob, sore throat x one week. Pt had negative COVID testing done this morning Pt denies any fever. HTN Pt has HTN .Pt t akes irbesartan and norvasc and his bp is borderline Pt denies any chest pain or headache HTN Pt has HTN Pt ta kes irbesartan and norvasc and his bp is borderline today. Pt states that his bp is around 130/70 at home. Pt denies any chest pain or headache. anxiety1 Pt has chronic a nxiety Pt denies any depression or any suicidal or homicidal thought Pt denies any crying spells. Pt takes xanax PRN and doing ok. Pt needs xanax refill STD Pt wants STD scr eening. Pt is bi sexual and he wants to take PREP for HIV prophylax. 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 Pt also takes trazodone for insomnia and doing ok HTN Pt has HTN Pt ta kes irbesartan and norvasc. pt thought he is out of refills so he has not been taking irbesartan and norvasc for several days. Pt denies any chest pain or headache Pt states that his bp is normal when he takes above meds. insomnia1 Pt doing ok with trazodone. Pt does have sleep apnea and he uses cpap nightly and doing ok anxiety1 Pt has chronic a nxiety. Pt denies any depression or any suicidal or homicidal thought Pt denies any crying spells. Pt takes xanax PRn and doing ok. Pt needs xanax refill. Pt still has some xanax left. b12 pt was taking b1 2 supplement and he stopped taking it after lab work insomnia1 Pt has insomnia and anxiety Pt denies any depression or any suicidal or homicidal thought Pt denies any crying spells HTN Pt has been taki ng irbesartan and norvasc and his bp is around 140/90 Pt denies any chest pain or headache HLP Pt has HLP. Pt h as borderline high glucose Pt denies any polyuria polydipsia physical Pt needs annual physical Pt has HTN. Pt takes irbesartan 300 mg daily but his bp is still high per patient. Pt denies any chest pain or headache. Pt has insomnia. Pt takes trazodone. Pt has sleep apnea and he uses cpap nightly and doing ok. Pt has anxiety Pt takes xanax PRN and doing ok. Pt denies any depression or any suicidal or homicidal thought .Pt denies any crying spells. pt wants STD screen. Pt denies any penile discharge, testicular pain or atrophy. Pt has/had multiple sex partners .Pt denies any inguinal lymph HTN Pt has HTN Pt jett s been out of his irbesartan for long time. Pt did not follow up and he has been out of bp meds for long time. Pt recently had some dull headache. Pt denies any vision change or chest pain or any acute headache anxiety1 Pt has chronic a nxiety. Pt denies any depression or any suicidal or homicidal thought .Pt denies any crying spells pt was taking xanax PRn but he has been out of xanax for a while. insomnia1 Pt has chronic i nsomnia .Pt takes trazodone qhs and doing ok. pt has been out of meds for a while. Pt also has sleep apnea and he uses cpap nightly and doing ok insomnia1 Pt has insomnia Pt takes trazodone and doing ok. Pt has sleep apnea. Pt uses cpap nightly. Pt denies any issues anxiety1 Pt has chronic a nxiety. Pt denies any depression or any suicidal thought Pt denies any crying spells. PT doing ok with xanax PRN HTN Pt has HTN. Pt t akes irbesartan and his bp is stable at home. Pt denies any chest pain or headache Physical Pt needs annual physical. Pt has HTN. Pt takes irbesartan and his BP is borderline. Pt denies any chest pain or headache. Pt has sleep apnea. Pt uses cpap nightly pt has chronic insomnia Pt takes trazodone and doing ok .Pt has chronic anxiety. pt denies any depression or any suicidal thought Pt denies any crying spells Pt also has sinus allergy pt needs flonase refilled pt wants STD screening Pt denies any STD symptoms Pt had multiple sex partners .Pt tripped and fell about one year ago and he sprained his right foot. Pt noticed some swelling and bruising initially ,pt did see griddle attendant and had negative x ray and was told nothing else can be done Pt still has dorsal right foot pain daily especially with walking pt denies any numbness and tingling pt denies any swelling Pt wants 2nd opinion from a griddle attendant Pt denies any recurrent injury Pt denies any cold feet or bruising. GERD1 Pt states that G ERD resolved Pt is off omeprazole. sleep apnea1 pt uses cpap nig ht. pt feels more energy and less snoring Pt tolerating cpap ok weight loss1 Pt has been inte ntional losing weight with diet and exercise Pt denies any appetite loss, nausea, vomiting, early satiety, bloody stool, etc anxiety1 Pt has chronic a nxiety pt denies any suicidal thought. Pt notices mild depression recently pt denies ay crying spells. Pt takes xanax PRn for anxiety. HTN Pt has HTN pt ta kes irbesartan and his BP is stable pt denies any chest pain or headache insomnia1 pt has been havi ng insomnia. Pt denies any snoring or any toruble with breathing weight loss1 Pt has been inte ntionally losing weight with diet and exercise. Patient lost 25 pounds since August. Patient cut out all carbs and soda. Patient has been exercising. 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 Pt denies any depression or any suicidal thought. Patient denies any crying spells. Pt takes xanax PRn and doing ok HTN Pt has HTN. Pt t akes irbesartan and his BP is around 130/80 at home. Pt denies any chest pain or headache GERD1 Pt has been havi ng frequent burping recently. pt has been eating more lettuce. Pt feels mild discomfot when he swallows for 4-5 days. Pt denies any dyspahgia, Pt has some mid chest discomfort after swallowing for one week glucose1 Pt has history o f mild high glucose Pt denies any polyuria, polyopsia. his repeat glucose is normal HTN Pt takes diovan and norvasc and his bp continues to be slightly high Pt denies any chest pain or headache Pt does not check his BP at home. anxiety1 Pt has chronic a nxiety Pt denies any depression or any suicidal thought. pt denies any crying spells. Pt takes xanax PRn and doing ok std1 Pt had completel y negative STD screening Pt also has positive sperm presences which is mobile. Pt states that he broke up with g/f recently so he is not concerned about sperm analysis anymore HLP Pt has mild HLP. Pt is working on low fat and low carb diet anxiety1 Pt has chronic a nxiety Pt denies any depression or any suicidal thought Pt denies any crying spells. 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 HTN Pt has HTN Pt mili lara daily Pt has not been taking norvasc. His BP is high Pt denies any chest pain or headache. Physical Pt needs annual physical Pt has HTN Pt takes benicar and norvasc his BP is still borderline high. Pt denies any chest pain or headache. Pt denies any swelling. Pt has chronic anxiety .Pt denies any depression or any suicidal thought. Pt denies any crying spells. Pt takes xanax PRn. Pt has mild high glucose and HLP, pt denies any polyuria, polydipsia. Pt wants STD screening Pt has only one sex partner and he denies any penile discharge or blisters, etc. Pt denies any other complaints. HTN Pt takes diovan and norvasc and his BP is still high. Pt denies any chest pain or headache. Pt does not check his BP at home. anxiety1 Pt has chronic a nxiety Pt denies any depression or any suicidal thought Pt denies any crying spells. 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 Pt does snore and he feels fatigue t level1 Pt states that h e notices that his erection is not as long as in the past. Pt has mildly low libido. pt wants T level checked, Pt denies any testicular pain or nodule or atrophy HTN Pt has HTn Pt ta kes diovan and Norvasc and his Bp is borderline today. Pt states that his bp is 130/80 at home. sleep 1 Pt snores and he feels very tired in the morning. Pt is not aware of any difficulty with breathing at night cp Pt had chest lesia n and he seen cardiology and he had negaativer echo and also ETT pt denies any cheset pain fatigue1 Pt has chronic a nxiety. Pt denies any depression or any suicidal thought. Pt denies any crying spells HLP Pt has mild HLP. Pt is not on any diet glucose1 Pt has mildly hi gh glucose. Pt denies any polyuria polydipsia HTN Pt has been taki ng consuelovan. His BP is borderline high. Pt denies any chest pain or headache HTN Pt has atypical chest pian. Pt has not had any chest pain recently. Pt just seen cardiology and he had negative ETT and also cardiac echo PHysical Pt needs annual physical. Pt has htn Pt has not been taking BP meds for severael years Pt c/o chest pain and pressure intemrittently for several months. Pt denies any exertional chest pain. ,Pt only feels chest pain when he feels emotional stressed out ,Pt feels dull pressure midsternal area without radiation to left arm or neck. Pt denies any sob. Pt denies any calf pain ,pt denies any recent travel or bedrest. Pt has chronic anxiety .Pt denies any depression or any suicidal thought, Pt denies any cyring spells. He also wants STD screening .Pt denie any symptoms. Pt has multiple partenrs cat bite Pt was biten by neighbor cat 2 days ago on right index finger. Pt notices swelling around the finger and pain. Pt denies any drainage. Pt denies any fever physical Pt needs annual physical. Pt has anxiety and depression. Pt takes wellburin and xanax. Pt feels slighlty more depressed lately. Pt denies any suicidasl or homicidal thought. Pt takes norvasc and his BP is stable. Pt denies any other complaints except for the cat bite. anxiety1 Pt has chronic a nxiety and depression. Pt takes wellbutirn and xanax and doing ok. Pt denies any suicidal or homicdial thought. Pt denies any crying spells HTN Pt has persisten t borderline HTN. Pt denies any chest pain or headache HLP Pt has hisitory of mild elevation of lipid profile. Pt is trying low fat and low carb diet glucose Pt has mild elev ated glucose. Pt denies any polyuria, polydipsia anxiety1 Pt has chronic a nxiety and depression .Pt takes wellbutrin 300 mg and xanax pRN PT has been doing much better Pt denies any suicidal or homicidal thought. Pt denies any crying spells Pt feels much happier. allergy Additional infor mation: Pt has seaonal allergy symptoms including sneezing, itchy eyes , stuffy nose for several weeks. obesity Associated sympt oms include anxiety and depression. Pertinent negatives include abdominal pain, cold intolerance, constipation, fatigue or vision changes. Additional information: Pt wants to lose weight. Pt tries diet and exercise but unable to lose any weight. Anxiety1 Pt has chronic a nxiety and depression. Pt feels better overall with his mood with wellbutrin and xanax He states that he still has some crying spells. Pt denies any suicidal or homicdial thought pt denies any feeling of hopelessness. depression depression1 Pt has chronic d epression and anxiety and mood swings. Pt states that he has been having symptoms for years. Pt feels so depressed that he does not want to get out bed in the morning. He has no motivation. He denies any crying spells. Pt has constant poor mood. Pt states that his depressed mood is affecting his work and school also. Pt denies any suicidal or homicidal thought. Pt has been noncompliant. He did not go to [facility] for cousnseling. Pt takes xanax PRN for anxiety only currently lip lesion1 Pt has some wart y like lesion on top of upper lip chronically. Pt did not make appointment with dermatology. Pt denies any itching or pain. Pt denies any other lesions HLP1 Pt has mild HLP and also hyperglycemia. Pt has been diet and exercising and lost some weight. Pt is trying low fat and low carb diet lip lesion Pertinent negati ves include fever and food allergies. Additional information: Pt c/o several spots around top of lip for years. Pt denies any pain. Pt denies any bleeding. Pt denies any size change. mood disorder Pt has chronic h istory of depression, mood swings. anxiety. Pt feels irritable. Pt denies hearing voices Pt denies any suicidal thought. Pt has anger issue and sometimes difficult to control his temper. Pt sometimes feels hopeless. Pt used to see a psychiatrist when he was younger who told him he has bipolar. His mom wanted to get 2nd opinion and he never took any pills for it. glucose Pt has mild hype rglycemia. Pt denies any polyuria, polydipsia HLP Pt has HLP. Pt e ats a lot of potato and carbs. vitamin D Pt has low vitam in D. Pt does not drink milk Anxeity Pt has chornic a nxiety. Pt denies any depression or any suicidal thought. Pt feels nervous. Pt denies any panic attacks. Pt states that xanax is helping. Physical Pt needs annual physical. Pt has chornic anxiety. Pt denies any depression or any suicidal thought. Pt used to take xanax about several years ago. Pt has not had any xanax for a while Pt has panic attaks severel times per week. Instructions Date Instruction Additional Infor jaziel Special diet education Related t o Body mass index (BMI) 35.0-35.9, adult Increase physical activity Relat ed to Abnormal weight loss Weight management Related to Abn ormal weight loss Special diet education Related t o Body mass index (BMI) 36.0-36.9, adult Follow a low sodium diet. Relate d to Essential (primary) hypertension Increase activity. Related to Es sential (primary) hypertension Follow a low sodium diet. Relate d to Essential (primary) hypertension Special diet education Related t o Body mass index (BMI) 38.0-38.9, adult Increase activity. Related to Es sential (primary) hypertension Special diet education Related t o Body mass index (BMI) 39.0-39.9, adult Increase physical activity Relat ed to Generalized anxiety disorder Weight management Related to Gen eralized anxiety disorder Special diet education Related t o Body mass index (BMI) 40.0-44.9, adult Increase activity. Related to En cntr for general adult medical exam w/o abnormal findings Special diet education Related t o Body mass index (BMI) 38.0-38.9, adult Increase physical activity Relat ed to Essential (primary) hypertension Weight management Related to Ess ential (primary) hypertension Special diet education Related t o Body mass index (BMI) 38.0-38.9, adult Increase physical activity Relat ed to Sleep apnea Weight management Related to Sle ep apnea Increase activity. Related to Es sential (primary) hypertension Follow a low sodium diet. Relate d to Essential (primary) hypertension Increase physical activity Relat ed to Essential (primary) hypertension Weight management Related to Ess ential (primary) hypertension Prescribed Activity and Exercise Education Related to Dietary Surveillance and Counseling Prescribed Diet Educ ation/Lifestyle Education Regarding Diet Related to Dietary Surveillance and Counseling Increase activity. Related to En cntr for general adult medical exam w/o abnormal findings Prescribed Activity and Exercise Education Related to Dietary Surveillance and Counseling Prescribed Diet Educ ation/Lifestyle Education Regarding Diet Related to Dietary Surveillance and Counseling Prescribed Diet Educ ation/Lifestyle Education Regarding Diet Related to Dietary Surveillance and Counseling Prescribed Activity and Exercise Education Related to Dietary Surveillance and Counseling Prescribed Activity and Exercise Education Related to Dietary Surveillance and Counseling Prescribed Diet Educ ation/Lifestyle Education Regarding Diet Related to Dietary Surveillance and Counseling Prescribed Activity and Exercise Education Related to Dietary Surveillance and Counseling Prescribed Diet Educ ation/Lifestyle Education Regarding Diet Related to Dietary Surveillance and Counseling Prescribed Diet Educ ation/Lifestyle Education Regarding Diet Related to Dietary Surveillance and Counseling Prescribed Activity and Exercise Education Related to Dietary Surveillance and Counseling Prescribed Diet Educ ation/Lifestyle Education Regarding Diet Related to Dietary Surveillance and Counseling Prescribed Activity and Exercise Education Related to Dietary Surveillance and Counseling Prescribed Activity and Exercise Education Related to Dietary Surveillance and Counseling Prescribed Diet Educ ation/Lifestyle Education Regarding Diet Related to Dietary Surveillance and Counseling Assessments Type Assessment Date No Information
--- OUTSIDE RECORDS SUMMARY | 2024-11-20 17:52 | XMS_ITS | Continuity of Care Document ---
Author Organization [facility] Address [address] [address] [place] [address] Phone Care Team Providers Care Black [place] Worker Name Role Phone Wicho Fang MD Unavailable [...] Diagnoses Date Provider Providers Copied on Encounter [facility], [address] [place], [place], [address], tel:[phone] [facility] Medicine No Information 5 Leoncio Sands. [address], [place], [place], [address] , [place]. tel:[phone] OFFICE/OUTPA TIENT VISIT, EST [facility], [address] [place], [place], [address], tel:[phone] [facility] HTN (chief complaint)a nxiety1 (chief complaint)s ick1 (chief complaint)i nsomnia1 (chief complaint) Essential (primary) hypertensionGenera lized anxiety disorderObstructiv e sleep apnea hypopneaViral infection 5 Leoncio Somers [address], [place], [place], [address] , [place]. tel:[phone] OFFICE/OUTPA TIENT VISIT, [facility], [address], [place], [place], [address], [place] tel:[phone] [facility] anxiety1 (chief complaint)H TN (chief complaint) Essential (primary) hypertensionGenera lized anxiety disorder 4 Leoncio Sands. [address], [place], [place], [address] , [place]. tel:[phone] OFFICE/OUTPA TIENT VISIT, [facility], [address], [place], [place], [address], [place] tel:[phone] [facility] GI (chief complaint) Gastroenteritis 4 Leoncio Sands. [address], [place], [place], [address] , [place]. tel:[phone] OFFICE/OUTPA TIENT VISIT, [facility], [address], [place], [place], [address], [place] tel:[phone] [facility] diarrhea1 (chief complaint)H TN (chief complaint)a nxiety1 (chief complaint) Irritable bowel syndrome with diarrheaGeneralize d anxiety disorderEssential (primary) hypertension 4 Leoncio Sands. [address], [place], [place], [address] , [place]. tel:[phone] OFFICE/OUTPA TIENT VISIT, [facility], [address], [place], [place], [address], [place] tel:[phone] [facility] HLP (chief complaint)a nxiety1 (chief complaint)i nsomnia1 (chief complaint)w eight gain1 (chief complaint) Generalized anxiety disorderMixed hyperlipidemiaPrim ady insomniaAbnormal weight gain 4 Leoncio Somers [address], [place], [place], [address] , [place]. tel:[phone] Referring Provider: Aria [address], [place], [place], [address]. tel:[phone] PREV VISIT, EST, AGE 18-39 [facility], [address], [place], [place], [address], [place] tel:[phone] [facility] physical (chief complaint) Encounter for general adult medical exam w abnormal findingsGeneralize d anxiety disorderEssential (primary) hypertensionObstru ctive sleep apnea hypopnea 3 Leoncio Somers [address], [place], [place], [address] , [place]. tel:[phone] Referring Provider: A[address], [place], [place], [address]. tel:[phone] OFFICE/OUTPA TIENT VISIT, EST [facility], [address], [place], [place], [address], [place] tel:[phone] [facility] anxiety1 (chief complaint)d iarrhea1 (chief complaint) Generalized anxiety disorderDiarrhea 3 Leoncio Somers [address], [place], [place], [address] , [place]. tel:[phone] Referring Provider: Aria [address], [place], [place], [address]. tel:[phone] OFFICE/OUTPA TIENT VISIT, EST [facility], [address], [place], [address], [place] tel:[phone] [facility] HTN (chief complaint)a nxiety1 (chief complaint) Generalized anxiety disorderEmotional labilityEssential (primary) hypertension 3 Leoncio Somers [address], [place], [place], [address] , [place]. tel:[phone] Referring Provider: Wicho Fang, [address], [place], [place], [address]. tel:[phone] OFFICE/OUTPA TIENT VISIT, EST [facility], [address], [place], [address], [place] tel:[phone] [facility] Medicine HTN (chief complaint)a nxiety1 (chief complaint) Essential (primary) hypertensionGenera lized anxiety disorder 3 Leoncio Sands. [address], [place], [address] , [place]. tel:[phone] Referring Provider: Wicho Fang [address] [facility] [address], [place], [place], [address]. tel:[phone] PREV VISIT, EST, AGE 18-39 [facility], [address], [place], [place], [address], [place] tel:[phone] [facility] physical (chief complaint) Encounter for general adult medical exam w abnormal findingsEssential (primary) hypertensionPrimar y insomniaPrimary central sleep apneaGeneralized anxiety disorderAbnormal weight gain 3 Leoncio Sands. [address], [place], [place], [address] , [place]. tel:[phone] Referring Provider: A[address], [place], [place], [address]. tel:[phone] OFFICE/OUTPA TIENT VISIT, EST [facility], [address], [place], [place], [address], [place] tel:[phone] [facility] anxiet1 (chief complaint)s ick (chief complaint)H TN (chief complaint) Generalized anxiety disorderEssential (primary) hypertensionAcute bronchitisHigh risk bisexual behavior 3 Leoncio Sands. [address], [place], [place], [address] , [place]. tel:[phone] Referring Provider: Wicho Fang [address], [place], [place], [address]. tel:[phone] OFFICE/OUTPA TIENT VISIT, [facility], [address], [place], [place], [address], [place] tel:[phone] [facility] HTN (chief complaint)a nxiety1 (chief complaint)S TD (chief complaint)s leep apnea1 (chief complaint) Essential (primary) hypertensionPrimar y insomniaGeneralize d anxiety disorderPrimary central sleep apneaEncounter for STD screening 2 Leoncio Sands. [address], [place], [place], [address] , [place]. tel:[phone] Referring Provider: Aria Adams [facility] [address], [place], [place], [address]. tel:[phone] OFFICE/OUTPA TIENT VISIT, [facility], [address], [place], [place], [address], [place] tel:[phone] [facility] HTN (chief complaint)i nsomnia1 (chief complaint)a nxiety1 (chief complaint) Generalized anxiety disorderEssential (primary) hypertensionPrimar y insomnia 2 Leoncio Sands. [address], [place], [place], [address] , [place]. tel:[phone] Referring Provider: Aria Adams [facility] [address], [place], [place], [address]. tel:[phone] OFFICE/OUTPA TIENT VISIT, [facility], [address], [place], [place], [address], [place] tel:[phone] [facility] HTN (chief complaint)H LP (chief complaint)b 12 (chief complaint)i nsomnia1 (chief complaint) Essential (primary) hypertensionGenera lized anxiety disorderInsomniaHy perlipidemiaHyperg lycemiaHigh risk bisexual behavior 2 Leoncio Somers [address], [place], [place], [address] , [place]. tel:[phone] Referring Provider: A[address], [place], [place], [address]. tel:[phone] PREV VISIT, EST, AGE 18-39 [facility], [address], [place], [place], [address], [place] tel:[phone] [facility] Medicine physical (chief complaint) Encounter for general adult medical exam w abnormal findingsEssential (primary) hypertensionSleep apneaGeneralized anxiety disorderInsomniaEn counter for STD screening 2 Leoncio Sands. [address], [place], [place], [address] , [place]. tel:[phone] Referring Provider: Wicho Fang, [address], [place], [place], [address]. tel:[phone] OFFICE/OUTPA TIENT VISIT, EST [facility], [address], [place], [place], [address], [place] tel:[phone] [facility] HTN (chief complaint)a nxiety1 (chief complaint)i nsomnia1 (chief complaint) Sleep apneaEssential (primary) hypertensionInsomn iaGeneralized anxiety disorderAbnormal weight gain 1 Leoncio Sands. [address], [place], [place], [address] , [place]. tel:[phone] Referring Provider: A[address], [place], [place], [address]. tel:[phone] OFFICE/OUTPA TIENT VISIT, EST [facility], [address], [place], [place], [address], [place] tel:[phone] [facility] insomnia1 (chief complaint)a nxiety1 (chief complaint)H TN (chief complaint) Generalized anxiety disorderEssential (primary) hypertensionSleep apneaInsomnia 0 Leoncio Sands. [address], [place], [place], [address] , [place]. tel:[phone] Referring Provider: A[address], [place], [place], [address]. tel:[phone] PREV VISIT, EST, AGE 18-39 [facility], [address], [place], [place], [address], [place] tel:[phone] [facility] Physical (chief complaint) Encntr for general adult medical exam w/o abnormal findings Oct-0 3-202 0 Leoncio Sands. [address], [place], [place], [address] , [place]. tel:[phone] Referring Provider: Wicho Fang, [address], [place], [place], [address]. tel:[phone] OFFICE/OUTPA TIENT VISIT, [facility], [address], [place], [place], [address], [place] tel:[phone] [facility] GERD1 (chief complaint)a nxiety1 (chief complaint)H TN (chief complaint)i nsomnia1 (chief complaint)s leep apnea1 (chief complaint)w eight loss1 (chief complaint) Sleep apneaInsomniaGener alized anxiety disorderGERD w/o esophagitisAbnorma l weight lossEssential (primary) hypertension 9 Leoncio Sands. [address], [place], [place], [address] , [place]. tel:[phone] OFFICE/OUTPA TIENT VISIT, EST [facility], [address], [place], [place], [address], [place] tel:[phone] [facility] weight loss1 (chief complaint)G ERD1 (chief complaint)a nxiety1 (chief complaint)H TN (chief complaint) Abnormal weight lossEssential (primary) hypertensionGenera lized anxiety disorderGERD w/o esophagitis 9 Leoncio Sands. [address], [place], [place], [address] , [place]. tel:[phone] OFFICE/OUTPA TIENT VISIT, [facility], [address], [place], [place], [address], [place] tel:[phone] [facility] HTN (chief complaint)a nxiety1 (chief complaint)g lucose1 (chief complaint)s td1 (chief complaint)H LP (chief complaint) Body mass index (BMI) 38.0-38.9, adultEssential (primary) hypertensionGenera lized anxiety disorderHyperglyce miaHigh risk bisexual behaviorHyperlipid emia 9 Leoncio Sands. [address], [place], [place], [address] , [place]. [phone] OFFICE/OUTPA TIENT VISIT, [facility], [address], [place], [place], [address], [place] tel:[phone] [facility] HTN (chief complaint)a nxiety1 (chief complaint)s leep apnea1 (chief complaint) Body mass index (BMI) 39.0-39.9, adultGeneralized anxiety disorderEssential (primary) hypertensionSleep apnea 9 Leoncio Sands. [address], [place], [place], [address] , [place]. tel:[phone] PREV VISIT, EST, AGE 18-39 [facility], [address], [place], [place], [address], [place] tel:[phone] [facility] Physical (chief complaint) Encntr for general adult medical exam w/o abnormal findings 9 Leoncio Sands. [address], [place], [place], [address] , [place]. tel:[phone] OFFICE/OUTPA TIENT VISIT, [facility], [address], [place], [place], [address], [place] tel:[phone] [facility] HTN (chief complaint)a nxiety1 (chief complaint)s leep apnea1 (chief complaint)t level1 (chief complaint) Essential (primary) hypertensionSleep apneaGeneralized anxiety disorderMale erectile dysfunction, unspecified 0- 8 Leoncio Sands. [address], [place], [place], [address] , [place]. tel:[phone] Referring Provider: Wicho Fang [address], [place], [place], [address]. tel:[phone] OFFICE/OUTPA TIENT VISIT, EST [facility], [address], [place], [place], [address], [place] tel:[phone] [facility] Medicine HTN (chief complaint)s leep 1 (chief complaint)c p (chief complaint)f atigue1 (chief complaint) Body mass index (BMI) 38.0-38.9, adultSleep apneaEssential (primary) hypertensionChest painGeneralized anxiety disorder 8 Leoncio Sands. [address], [place], [place], [address] , [place]. [phone] Referring Provider: Wicho Fang [address], [place], [place], [address]. tel:[phone] OFFICE/OUTPA TIENT VISIT, EST [facility], [address], [place], [place], [address], [place] tel:[phone] [facility] Medicine HLP (chief complaint)g lucose1 (chief complaint)H TN (chief complaint)H TN (chief complaint) Essential (primary) hypertensionHyperg lycemiaHyperlipide miaChest painBody mass index (BMI) 38.0-38.9, adult 8 Leoncio Sands. [address], [place], [place], [address] , [place]. [phone] Referring Provider: Aria [address], [place], [place], [address]. tel:[phone] PREV VISIT, EST, AGE 18-39 [facility], [address], [place], [place], [address], [place] tel:[phone] [facility] PHysical (chief complaint) Encntr for general adult medical exam w/o abnormal findings 8 Leoncio Sands. [address], [place], [place], [address] , [place]. tel:[phone] Referring Provider: Wicho Fang [address], [place], [place], [address]. tel:[phone] PREV VISIT, EST, AGE 18-39 [facility], [address], [place], [place], [address], [place] tel:[phone] [facility] cat bite (chief complaint)p hysical (chief complaint) Encntr for general adult medical exam w/o abnormal findings 6 Leoncio Sands. [address], [place], [place], [address] , [place]. tel:[phone] Referring Provider: Aria [address], [place], [place], [address]. tel:[phone] OFFICE/OUTPA TIENT VISIT, [facility], [address], [place], [place], [address], [place] tel:[phone] [facility] anxiety1 (chief complaint)H TN (chief complaint)H LP (chief complaint)g lucose (chief complaint) Essential (primary) hypertensionMixed hyperlipidemiaHype rglycemiaGeneraliz ed anxiety disorder 6 Leoncio Sands. [address], [place], [place], [address] , [place]. tel:[phone] Referring Provider: [address], [place], [address]. tel:[phone] OFFICE/OUTPA TIENT VISIT, [facility], [address], [place], [place], [address], [place] tel:[phone] [facility] anxiety1 (chief complaint)a llergy (chief complaint)o besity (chief complaint) Generalized anxiety disorderAllergic rhinitisBody mass index (BMI) 34.0-34.9, adult Oct-0 6 Leoncio Sands. [address], [place], [address] , [place]. [phone] Referring Provider: Aria [address], [place], [place], [address]. tel:[phone] OFFICE/OUTPA TIENT VISIT, [facility], [address], [place], [address], [place] tel:[phone] [facility] Anxiety1 (chief complaint) Generalized anxiety disorderDepression NOS 0 6 Leoncio Sands. [address], [place], [place], [address] , [place]. tel:[phone] Referring Provider: Aria [address] [facility] [address], [place], [place], [address]. tel:[phone] OFFICE/OUTPA TIENT VISIT, [facility], [address], [place], [place], [address], [place] tel:[phone] [facility] depression (chief complaint)d epression1 (chief complaint)l ip lesion1 (chief complaint)H LP1 (chief complaint) Other viral wartsGeneralized anxiety disorderDepression Mixed hyperlipidemia 5 Leoncio Sands. [address], [place], [place], [address] , [place]. tel:[phone] Referring Provider: [address], [place], [place], [address]. tel:[phone] OFFICE/OUTPA TIENT VISIT, [facility], [address], [place], [place], [address], [place] tel:[phone] [facility] lip lesion (chief complaint)m ood disorder (chief complaint) Dietary surveillance and counselingChronic depressionPersonal ity disorder characterized by alternating episodes of mood swings from mild to moderate depression to episodes full of hyperactivity, excitement, elevated mood and high energyAbnormal weight gainLip lesion Apr-2 2201 5 Leoncio Sands. [address], [place], [place], [address] , [place]. tel:[phone] Referring Provider: [address], [place], [place], [address]. tel:[phone] OFFICE/OUTPA TIENT VISIT, [facility], [address], [place], [place], [address], [place] tel:[phone] [facility] glucose (chief complaint)H LP (chief complaint)v itamin D (chief complaint)A nxeity (chief complaint) HyperglycemiaOther and unspecified hyperlipidemiaVita min deficiencyGenerali zed Anxiety Disorder 5 Leoncio Sands. [address], [place], [place], [address] , [place]. tel:[phone] Referring Provider: Wicho Fang, [address], [place], [place], [address]. tel:[phone] PREV VISIT, NEW, AGE 18-39 [facility], [address], [place], [address], [place] tel:[phone] [facility] Physical (chief complaint) Dietary surveillance and counselingRoutine medical exam 5 Leoncio Sands. [address], [place], [place], [address] , [place]. tel:[phone] Family History Family Member Type Diagnosis Age At Onset Paternal grandfather Problem colon CA in his 50s Father Problem (finding) Renal disease Mother Problem (finding) Thyroid disorder Father Problem (finding) Hypertension Brother Problem (finding) Alive and well Payers Payer name Insurance type Covered libertarian ID Authoriza tion(s) No Information Social History [...] Rogel [address] [place], [place] [phone] Ordered: Referrals: George Rogel. Evaluate and treat ordered Referral Ordered: Plastic Surgery (related to Other viral warts) ordered Referral Ordered: Referrals: Plastic Surgery. Evaluate and treat ordered Referral Ordered: Lisy Bey (related to Lip lesion) ordered Referral Referred To: Lisy Bey [address] [place], [phone] Ordered: Referrals: Lisy Bey. Evaluate and treat [...] abd cramp. Pt had some sushi at [employer] prior to onset. Pt is able to [...] HIV prophylax. 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 Pt denies any depression or [...] doing ok sleep apnea1 Pt has sleep machine hoop maker helper ea .Pt uses CPAP nightly .Pt has less snoring and he feels more energy in the morning. HTN Pt has HTN Pt imli lara daily Pt has not been taking [...] doing ok sleep apnea1 Pt has sleep machine hoop maker helper ea pt has not heard from sleep [...] been noncompliant. He [facility] not go [facility] cousnsel[facility]. Pt takes xanax PRN [...] o Body mass index (BMI) 35.0-35.9, adult Special diet education Related t o Body mass index (BMI) 36.0-36.9, adult Increase physical activity Relat ed to Abnormal weight loss Weight management Related to Abn ormal weight loss Follow a low sodium diet. Relate d to Essential (primary) hypertension Special diet education Related t o Body mass index (BMI) 38.0-38.9, adult Increase activity. Related to Es sential (primary) hypertension Increase activity. Related to Es [...]
--- OUTSIDE RECORDS SUMMARY | 2024-11-20 17:52 | XMS_ITS | Clinical Summary ---
Author Organization [facility] Address [address] [place] [address] Care Team Providers Care Textile Dyer Name Role Phone Wicho Fang MD Primary Care Provider [phone] Source Comments [facility],non-owned Affiliates and Associated Physician Practices is amultiple site organization consisting of ambulatory clinics and hospital sitesin [place], [place], [place] and [place]. This disclosure is being madepursuant to the Care Everywhere program and may not contain all information available regarding this patient. Last updated 18.[facility] Allergies No known active allergies Medications * [...] 01/24/2023 1:10 PM CDT Whitley Maguire David GARDENING INSTRUCTOR-HEAVY FORGING MACHINE OPERATOR LAB - POINT OF CARE ORDERABLES * [...] a test for HCV RNA (test code 69603) is suggested. For additional information please refer to http://education.[employer]/faq/YMI49t4 (This link is being provided for informational/ educational purposes only.) Test Performed at: [facility] [address] [place] [address] KATHY WILCOX MD Blood BLOOD SPECIMEN / Unknown 10/25/2022 1:48 PM CDT 10/26/2022 2:15 PM CDT Whitley Maguire David GARDENING INSTRUCTOR-HEAVY FORGING MACHINE OPERATOR LAB - CHEMISTRY ORDERABLES [facility] [address] [place] [address] from Last 3 Months or Most Recently Relevant to Health Maintenance Care Teams Textile Dyer Relationship Specialty Start Date End Date Wicho Fang MD [address] [place] [id number] PCP - General 06/29/22
--- OUTSIDE RECORDS SUMMARY | 2024-11-20 17:52 | XMS_ITS | Encounter Summary ---
Author Organization [facility] Address [facility] [facility] [place] [address] Care Team Providers Care Animal Caregiver Name Role Phone Wicho Fang MD Primary Care Provider [phone] Reason for Visit * Reason Comments Refill Request Encounter Details Date Type Department Care Team (Late st Contact Info) Description 01/18/2023 Refill [facility] - Infectious Disease [address] [place] [address], [facility] [place] [id number] Whitley Hernandez, TRAIN STATION AGENT-NON CATEGORICAL PRESCHOOL TEACHER [address] [place] [phone] Refill Request Social History Tobacco Use Types [...] diseases documented in this encounter Care Teams Animal Caregiver Relationship Specialty Start Date End Date Wicho Fang MD [address] [place] [id number] PCP - General 06/29/22 documented as of this encounter
--- NOTE | 2024-11-20 18:28 | ED_ITS ---
HPI - Chest Pain General Chief Complaint: Chest Pain Stated Complaint: high bp/ chest pain Time Seen by Provider: 11/20/24 17:27 History of Present Illness HPI narrative: 39-year-old male with history of anxiety and hypertension presents to the emergency department for headaches, high blood pressure and chest pain for the past 2 days. Patient states 6 days ago he noticed he ran out of his blood pressure medications, amlodipine 10 mg and irbesartan 300 mg which he takes daily at night. His PCP refilled his medications yesterday which she has since been taking as directed. His symptoms started 2 days ago. He also notes last week he was taking multiple decongestants for nasal congestion and allergies including NyQuil, DayQuil, Claritin. Two days ago he began developing a diffuse pulsatile headache. States he has been taking Tylenol [id number] with improvement. Upon my evaluation he states his headache has resolved since he has been in the emergency department. He does state that he had associated ?hazy? vision earlier today and photophobia with his headache but both of these have resolved as well. He notes for the past 2 days he has had central chest pain he describes as a dull ache that is worse in certain positions and better in certain positions. He denies pleuritic pain or exertional symptoms. Today, he states he was at work lifting his arms above his head when he felt his heart beating very quickly. States this lasted 10-15 seconds, no palitations since. He went to a local [facility]'s, had his blood pressure checked and was advised to come to the emergency department after being told his blood pressure was 237 systolic. When asked if he is currently having chest pain he states it is very mild a feels like it is ?going away?. The patient states he is under increased stress and anxiety that his best friend recently last week. He is prescribed Xanax. He denies personal history of cardiac disease but does notice father of renal and cardiac disease. Denies personal or family history of CVA. The patient does not smoke tobacco. He denies lower extremity edema, history of VTE, hemoptysis, recent surgeries or hospitalizations. He has had a mildly productive cough with his allergy symptoms but states this is not out of the norm for him. He denies fever. He has not taken his blood pressure medications today. Related Data Allergies Allergy/AdvReac Type Severity Reaction Status Date / Time No Known Allergies Allergy Unverified 01/19/12 10:42 Review of Systems 2 Review of Systems: All systems reviewed & are unremarkable except as noted in HPI and below PMFSH Family History Family History Father Hypertension Family history of cardiovascular disease Family history of kidney disease Mother Family history of malignant neoplasm of thyroid Social History Social History Smoking status: Former smoker Smoking end date: 09/14/16 Alcohol intake: never Exam 2 Narrative: GENERAL: Well-appearing, well-nourished, and in no acute distress. HEAD: Normocephalic, atraumatic. EYES: PERRLA and EOMI. ENT: Nares clear, no rhinorrhea or epistaxis. Mucous membranes moist. NECK: Supple. CHEST: Clear to auscultation. No respiratory distress. HEART: Regular rate and rhythm. No murmur heard. Normal peripheral pulses. ABDOMEN: Soft, nontender, nondistended, normal active bowel sounds. EXTREMITIES: Normal range of motion. No edema. Negative Homans bilaterally SKIN: Warm, dry, no rash. NEURO: No focal deficits. Alert and oriented x4.. Moving all extremities spontaneously. Cranial nerves 2-12 intact. Course Vital Signs Vital signs: Vital Signs Temperature 97.6 F 11/20/24 15:43 Pulse Rate 98 11/20/24 15:43 Respiratory Rate 16 11/20/24 15:43 Blood Pressure 217/127 H 11/20/24 15:43 Pulse Oximetry 99 11/20/24 15:43 Oxygen Delivery Room Air 11/20/24 15:43 Temperature 98.2 F 11/20/24 16:27 Pulse Rate 89 11/20/24 16:27 Respiratory Rate 16 11/20/24 16:27 Blood Pressure 213/130 H 11/20/24 16:27 Pulse Oximetry 97 11/20/24 16:27 Oxygen Delivery Room Air 11/20/24 16:27 MDM - Chest Pain MDM Narrative Medical decision making narrative: 39-year-old male with history of hypertension and anxiety presents to emergency department for 2 days of headache, chest pain and high blood pressure. See HPI for further history. Triage vitals with hypertension 217/127. Patient is neurovascularly intact resting comfortably in exam bed. On my evaluation patient denies headache and states he has very very mild chest pain that feels like it is going away. EKG shows sinus rhythm with Q-waves in the anterior septal leads, no ST elevations or depressions, nonspecific T-wave abnormalities. Troponin and delta troponin are within normal limits. Chest x-ray shows no acute cardiopulmonary findings. CT brain shows no acute intracranial findings. CBC with nonspecific leukocytosis of 11.3, no bandemia. Chemistries are unremarkable. Lipase is normal. PERC rule is negative for PE. Patient updated on results. He received his normal dose of amlodipine and irbesartan, BPs have improved somewhat but still remain elevated. He also endorsing increased stress and anxiety given his best friends recent and therefore was given Ativan. On re-evaluation patient states he is asymptomatic and not having any headache or chest pain. He is ready to go home. I discussed there are several factors that are likely contributing to his elevated blood pressure including his recent use of decongestants, recently ran out of his blood pressure medications, recent of his best friend, stress/anxiety. I advised him to continue his antihypertensives, continue taking his blood pressure daily to follow-up closely with his PCP. Discussed strict ED return precautions. He is agreeable verbalized understanding. Discharged in stable condition. Lab Data 11/20/24 15:44 11/20/24 15:44 Labs: Lab Results 11/20/24 11/20/24 Range/Units 15:44 18:40 WBC 11.3 H (4.5-10.0) K/mm3 RBC 5.22 (4.6-6.20) M/mm3 Hgb 14.1 (14.0-18.0) g/dL Hct 44.2 (42.0-52.0) % MCV 84.7 (80-100) fl MCH 27.0 (26-34) pg MCHC 31.9 L (32-36) g/dl RDW 14.3 (11.5-14.5) % Plt Count 235 (150-375) k/mm3 MPV 12.6 H (7.4-10.4) fl Immature Gran % (Auto) Not Reportable Neut % (Auto) Not Reportable Lymph % (Auto) Not Reportable Stearns % (Auto) Not Reportable Eos % (Auto) Not Reportable Baso % (Auto) Not Reportable Lymph # (Auto) Not Reportable Stearns # (Auto) Not Reportable Eos # (Auto) Not Reportable Baso # (Auto) Not Reportable Abs Immat Gran (auto) Not Reportable Absolute Neuts (auto) Not Reportable Absolute Nucleated RBC Not Reportable Total Counted 100 Neutrophils % (Manual) 74 H (46-73) % Band Neutrophils % 2 (0-6) % Lymphocytes % (Manual) 14 L (18-44) % Monocytes % (Manual) 8 (3-9) % Eosinophils % (Manual) 1 (0-4) % Basophils % (Manual) 1 (0-1) % Nucleated RBC % Not Reportable Abs Neuts (Manual) 8.58 H (1.3-6.7) K/mm3 Abs Lymphs (Manual) 1.58 (1.1-4.5) K/mm3 Abs Monocytes (Manual) 0.90 (0.1-0.90) K/mm3 Absolute Eos (Manual) 0.11 (0.02-0.50) K/mm3 Abs Basophils (Manual) 0.11 H (0.0-0.1) K/mm3 Platelet Estimate Adequate (Adequate) Anisocytosis 1+ Ovalocytes 1+ Schistocytes None seen PT 13.7 (11.1-14.7) Seconds INR 1.0 APTT 30.5 (22.3-36.8) Seconds Sodium 140 (137-145) mmol/L Potassium 3.8 (3.4-5.0) mmol/L Chloride 105 (98-107) mmol/L Carbon Dioxide 26 (22-30) mmol/L Anion Gap 9 (4-12) mmol/L BUN 17 (9-20) mg/dL Creatinine 1.05 (0.7-1.3) mg/dL Estim Creat Clear Calc 134 ml/min Estimated GFR > 60 (59 - ) Glucose 155 H (65-110) mg/dL Calcium 9.1 (8.4-10.2) mg/dL Magnesium 1.8 (1.6-2.3) mg/dL Total Bilirubin 0.5 (0.2-1.3) mg/dL AST 23 (17-59) U/L ALT 22 (6-50) U/L Alkaline Phosphatase 63 (38-126) U/L Troponin I 0.013 0.015 (0.000-0.034) ng/mL Total Protein 8.0 (6.3-8.2) g/dL Albumin 4.7 (3.5-5.1) g/dL Lipase 92 (23-300) U/L Discharge Plan Discharge Clinical Impression: Asymptomatic hypertension, Atypical chest pain, Anxiety Patient Disposition: Home Condition: Stable Instructions: Antibiotic Form, Chest Pain (DC), Hypertension (ED), Anxiety (ED) Additional Instructions: You were evaluated in the emergency department for high blood pressure, chest pain and headaches the past 2 days. Your workup here is largely reassuring. Your given your blood pressure medications and anxiety medications with resolution of your symptoms. I suspect her symptoms are multifactorial as discussed and may be secondary to increased stress/anxiety, recent illness, use of decongestants, and the fact that you are not taking her blood pressure medications for several days. Please make sure you are taking her blood pressure medications daily. Follow-up closely with your primary care provider. Return to the emergency department if you develop worsening or changing chest pain, shortness of breath, vision changes, focal numbness or weakness, thoughts of harming yourself or other people, or other concerning symptoms. Patient Language: Lithuanian Follow-up/Referrals: Wicho Fang MD [Primary Care Provider] - Quality HEART score for chest pain patients History: slightly suspicious ECG: non specific repolarization disturbance/LBTB/PM Age: < or = to 45 years Risk factors: > or = to 3 risk factors of atherosclerotic disease Troponin: < or = to 1x normal limit Heart score: 3
[2024-11-20] MEDS: LORazepam INJ (*CRX) 2 MG/ML VIAL 1 MG IV PUSH (18:43)
[2024-11-20] MEDS: amLODIPine BESYLATE 10 MG TABLET PO (18:58)
[2024-11-20] MEDS: IRBESARTAN 150 MG TABLET 300 MG PO (18:58)
[2024-11-20 19:02] LABS: Magnesium 1.8 mg/dL (1.6-2.3)
[2024-11-20 19:13] LABS: Troponin I 0.015 ng/mL (0.000-0.034)
[2024-11-20 20:29] VITALS: BP 179/103; PULSE 86; RESP 19; O2SAT 100
== END 2024-11-20 20:31 | disposition home or self-care (01) ==
PROVIDERS: Student in an Organized Health Care Education/Training Program; Emergency Provider Physician Assistant; PCP Emergency Medicine
DX: R07.89 Other chest pain (principal); I10 Essential (primary) hypertension; F41.9 Anxiety disorder, unspecified; Z87.891 Personal history of nicotine dependence; R94.31 Abnormal electrocardiogram [ECG] [EKG]
CPT/HCPCS: 36415; 70450; 71046; 80053; 83690; 83735; 84484; 85025; 85610; 85730; 93005; 96374; 99284; A9270; J2060